=== PATIENT | male | born 1975 | race Caucasian/White ===

== ENCOUNTER 2022-04-25 18:01 | Emergency (ER) | payer OTHER ==
[~2022-04-25] VITALS: Ht 177.8 cm; Wt 95.3 kg
[2022-04-25] MEDS ORDERED: AMOX1TAB5 PO (21:30)
[2022-04-25] MEDS ORDERED: AMOX1TAB5 (22:39)
== END 2022-04-25 23:52 | disposition home or self-care (01) ==
LOC: ER 18:01
DX: L03.011 Cellulitis of right finger (principal)